=== PATIENT | female | born 1960 | race Two or more races ===

== ENCOUNTER 2020-10-23 01:09 | Emergency (ER) | payer OTHER ==
[~2020-10-23] VITALS: Ht 165.1 cm; Wt 120.2 kg
[~2020-10-23 01:09] MED LIST: ABAT1INJ2 SC; CALC0.25 PO; DILT120C65 PO; DOCU-94 PO; FURO20TA3 PO; HYDR200T36 PO; INSLISPI SC; LEFL20TA PO; LOSA-39 PO; SEVE800T PO
[2020-10-23] MEDS ORDERED: LORazepam 2MG/ML-1ML VIAL IV ONE ×3 (03:15→15:30)
[2020-10-23 03:16] LABS: Basophils # (auto) 0.1 10 ^3/uL (0-0.2); Basophils % (auto) 0.4 % (0.0-2.0); Eosinophils # (auto) 0.2 10 ^3/uL (0-0.8); Eosinophils % (auto) 1.1 % (0.0-7.0); Hematocrit 35.1 % (36.0-46.0); Hemoglobin 11.7 g/dL (12.2-16.2); Lymphocytes % (auto) 11.8 % (10.0-50.0); Mean Corpuscular Hemoglobin 31.2 pg (28.0-32.0); Mean Corpuscular Hgb Conc. 33.4 g/dL (32.0-36.0); Mean Corpuscular Volume 93.7 fL (80.0-100.0); Monocytes # (auto) 1.1 10 ^3/uL (0-1.3); Monocytes % (auto) 6.5 % (0.0-12.0); Neutrophils # (auto) 13.8 10 ^3/uL (1.6-8.6); Neutrophils % (auto) 80.2 % (37.0-80.0); Platelet Count (auto) 675 10^3/uL (140-450); Red Blood Cells 3.74 10^6/uL (4.0-5.20); Red Cell Distribution Width 13.4 % (11.8-14.3); White Blood Cell 17.2 10^3/uL (4.4-10.8)
[2020-10-23 03:33] LABS: Albumin 3.1 g/dL (3.4-5.0); Anion Gap 17 (5-15); Blood Urea Nitrogen 75 mg/dL (7-18); Calcium 9.7 mg/dL (8.5-10.1); Carbon Dioxide 21 mmol/L (21-32); Chloride 97 mmol/L (98-107); Glucose 242 mg/dL (74-106); Sodium 135 mmol/L (136-145)
[2020-10-23 03:35] LABS: BUN/Creatinine Ratio 7.6; Blood Alcohol < 3.0 mg/dL (0-5); GFR African American 5 mL/min; GFR Non-African American 4 mL/min
[2020-10-23 03:39] LABS: Potassium 5.7 mmol/L (3.5-5.1)
[2020-10-23 03:55] LABS: Alanine Aminotransferase 49 U/L (13-56); Alkaline Phosphatase 466 U/L (45-117); Aspartate Aminotransferase 48 U/L (15-37); Bilirubin, Total 0.6 mg/dL (0.2-1.0); Total Protein 8.3 g/dL (6.4-8.2)
[2020-10-23 03:59] LABS: Urine Bacteria FEW /hpf (None Seen); Urine Blood 1+ /uL (Negative); Urine Budding Yeast MANY /hpf (None Seen); Urine Specific Gravity 1.015 (1.001-1.035); Urine WBC 88 /hpf (0 - 5)
[2020-10-23 04:04] LABS: INR 1.04 (0.9-1.15); Partial Thromboplastin Time 33.3 sec (23.0-31.2)
[2020-10-23 04:25] LABS: Alcohol, Urine < 3.0 mg/dL (0-10); Amphetamine Screen, Urine NEGATIVE (NEGATIVE); Barbiturate Scree,Urine NEGATIVE (NEGATIVE); Benzodiazephine Screen, Urine NEGATIVE (NEGATIVE); Cannabinoid Screen, Urine NEGATIVE (NEGATIVE); Cocaine Screen, Urine NEGATIVE (NEGATIVE); Opiate Scree,Urine NEGATIVE (NEGATIVE); Phencyclidine Screen, Urine NEGATIVE (NEGATIVE)
[2020-10-23] MEDS ORDERED: LORazepam 2MG/ML-1ML VIAL ONE (07:59)
[2020-10-23] MEDS ORDERED: SODIUM BICARBONATE 8.4% INJ 50ML SYRINGE IV ONE (13:30)
[2020-10-23] MEDS ORDERED: SODIUM ZIRCONIUM CYCL 10 GM PAK PO ONE (13:30)
[2020-10-23] MEDS ORDERED: FUROSEMIDE 40 MG/4 ML VIAL IV ONE (13:30)
[2020-10-23] MEDS ORDERED: ALBUTEROL SULF 2.5 MG/0.5ML(0.5%) NEB SOLN NEB ONE (13:30)
[2020-10-23] MEDS ORDERED: DEXTROSE (50%) 50ML SYRG IV ONE (13:30)
[2020-10-23] MEDS ORDERED: CEFTRIAXONE SODIUM 2 GM in D5W 5% 50 ML IV ONE (13:30)
[2020-10-23] MEDS ORDERED: InsuLIN REG 1unit/0.01ml Soln (100units/ml) IV ONE (13:30)
[2020-10-23 15:01] VITALS: BP 150/94
[2020-10-23] MEDS ORDERED: MORPHINE SULFATE 4 MG/ML SYR/VIAL ONE (15:34)
[2020-10-23] MEDS ORDERED: ONDANSETRON HCL 4 MG/2 ML VIAL ONE (15:34)
[2020-10-23] MEDS ORDERED: ONDANSETRON HCL 4 MG/2 ML VIAL IV ONE (15:45)
[2020-10-23] MEDS ORDERED: MORPHINE SULFATE 4 MG/ML SYR/VIAL IV ONE (15:45)
== END 2020-10-23 15:49 | disposition designated cancer center or children's hospital (05) ==
LOC: EDBD 01:09 → ER 01:09
DX: R41.82 Altered mental status, unspecified (principal); E11.65 Type 2 diabetes mellitus with hyperglycemia; E11.22 Type 2 diabetes mellitus with diabetic chronic kidney disease; R07.9 Chest pain, unspecified; I12.0 Hypertensive chronic kidney disease with stage 5 chronic kidney disease or end stage renal disease; N18.6 End stage renal disease; E87.5 Hyperkalemia; G93.41 Metabolic encephalopathy; D72.829 Elevated white blood cell count, unspecified; D32.9 Benign neoplasm of meninges, unspecified; N39.0 Urinary tract infection, site not specified; Z86.73 Personal history of transient ischemic attack (TIA), and cerebral infarction without residual deficits; Z98.51 Tubal ligation status; Z90.49 Acquired absence of other specified parts of digestive tract; Z20.822 Contact with and (suspected) exposure to COVID-19
CPT/HCPCS: 36415; 51702; 70450; 71045; 80053; 80307; 80320; 81001; 83605; 85025; 85610; 85730; 87040; 87086; 87426; 94640; 96374; 96375; 96376; 99285; J0696; J1940; J2060; J2270; J2405; J7042; J7060; U0003

== ENCOUNTER 2021-04-11 13:25 | Emergency (ER) | payer OTHER ==
[~2021-04-11] VITALS: Ht 180.3 cm; Wt 81.6 kg
[2021-04-11 13:47] VITALS: BP 145/61
[2021-04-11] MEDS ORDERED: ONDANSETRON HCL 4 MG/2 ML VIAL IV ONE (14:30)
[2021-04-11] MEDS ORDERED: MORPHINE SULFATE 4 MG/ML SYR/VIAL IV ONE (14:30)
== END 2021-04-11 14:41 | disposition left against medical advice (07) ==
LOC: ER 13:25 → EDBD 13:25 → ER 14:38
DX: M79.10 Myalgia, unspecified site (principal); M79.604 Pain in right leg; M79.605 Pain in left leg; I12.0 Hypertensive chronic kidney disease with stage 5 chronic kidney disease or end stage renal disease; E11.22 Type 2 diabetes mellitus with diabetic chronic kidney disease; N18.6 End stage renal disease; Z99.2 Dependence on renal dialysis; Z86.73 Personal history of transient ischemic attack (TIA), and cerebral infarction without residual deficits; Z90.49 Acquired absence of other specified parts of digestive tract; Z79.4 Long term (current) use of insulin; Z79.899 Other long term (current) drug therapy; Z88.8 Allergy status to other drugs, medicaments and biological substances; W18.39XA Other fall on same level, initial encounter; Y93.89 Activity, other specified; Y92.89 Other specified places as the place of occurrence of the external cause; Y99.8 Other external cause status
CPT/HCPCS: 93005